=== PATIENT | female | born 1970 | race African-American/Black ===

== ENCOUNTER 2019-06-09 | Emergency (ER) | payer BC ==
--- NOTE | 2019-06-09 16:05 | ER ---
Nurse's Notes [facility] Name: Gisel Jean Baptiste Age: 48 yrs Sex: Female : 1970 Arrival Date: 06/09/2019 Time: 14:34 Bed 23 Private MD: Diagnosis: Cutaneous abscess of face Presentation: 06/09 14:55 Presenting complaint: Patient states: i have like a pimple or a boil, i cant even put tw2 my finger in there and its got my whole face swollen on the LEFT side, about 4 or 5 days, i was trying to manage it and put neosporin but it didn't help, i used to get boils on my body but i have never had one in my nose. Transition of care: patient was not received from another setting of care. Onset of symptoms was June 09, 2019. Risk Assessment: Do you want to hurt yourself or someone else? Patient reports no desire to harm self or others. Initial Sepsis Screen: Does the patient meet any 2 criteria? No. Patient's initial sepsis screen is negative. Does the patient have a suspected source of infection? No. Patient's initial sepsis screen is negative. Care prior to arrival: None. 14:55 Method Of Arrival: Ambulatory tw2 14:55 Acuity: VARUN 3 tw2 Triage Assessment: 15:01 General: Appears in no apparent distress. obese, well groomed, Behavior is calm, tw2 cooperative, appropriate for age. Pain: Complains of pain in left nostril and left cheek area. 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 - Coronavirus screen:: The patient has NOT traveled to [place] in the past 14 days. - Social history:: Smoking status: . - Ebola Screening: : Patient denies travel to an Ebola-affected area in the 21 days before illness onset. Screenin:11 Abuse screen: Denies threats or abuse. Nutritional screening: No deficits noted. vc Tuberculosis screening: No symptoms or risk factors identified. Fall Risk None identified. Assessment: 15:13 General: Appears in no apparent distress. uncomfortable, Behavior is calm, cooperative, vc appropriate for age. Pain: Complains of pain in Left nare and left side of face Pain currently is 7 out of 10 on a pain scale. Neuro: Level of Consciousness is awake, alert, obeys commands, Oriented to person, place, time, situation. Cardiovascular: Patient's skin is warm and dry. Cardiovascular: Respiratory: Respiratory effort is even, unlabored, Respiratory pattern is regular, symmetrical. GI: No deficits noted. : No signs and/or symptoms were reported regarding the genitourinary system. EENT: Reports pain in left nostril. Derm: Skin temperature is warm. Musculoskeletal: Circulation, motion, and sensation intact. Range of motion:. Vital Signs: 14:57 BP 148 / 94; Pulse 84; Resp 17; Temp 98.2(O); Pulse Ox 97% on R/A; Weight 104.33 kg tw2 (R); Height 5 ft. 3 in. (160.02 cm); Pain 8/10; 14:57 Body Mass Index 40.74 (104.33 kg, 160.02 cm) tw2 ED Course: 14:34 Patient arrived in ED. as 14:57 Triage completed. tw2 14:57 Arm band placed on. tw2 15:01 Bunny Gomez FNP-C [facility]. la1 15:01 Nicholas Merino MD is Attending Physician. la1 15:10 Felicity Larson, ROLLY is Primary Nurse. vc 15:12 Patient has correct armband on for positive identification. vc 15:14 Tessie Marx MD is Referral Physician. la1 15:15 No provider procedures requiring assistance completed. Patient did not have IV access vc during this emergency room visit. Administered Medications: No medications were administered Outcome: 15:15 Discharge ordered by . la1 15:18 Discharged to home ambulatory. vc 15:18 Condition: good 15:18 Discharge instructions given to patient, Instructed on discharge instructions, follow up and referral plans. medication usage, Demonstrated understanding of instructions, follow-up care, medications, Prescriptions given X 1. 15:19 Patient left the ED. vc Signatures: Ronel Shepherd Lee, CABLE WORKER HELPER-C CABLE WORKER HELPER-Cla1 Barbra Martinez, RN RN tw2 Felicity Larson RN RN vc
--- NOTE | 2019-06-09 16:06 | EDPHYS ---
Physician Documentation [facility] Name: Gisel Jean Baptiste Age: 48 yrs Sex: Female : 1970 Arrival Date: 06/09/2019 Time: 14:34 Bed 23 Private MD: ED Physician Nicholas Merino HPI: 06/09 15:16 This 48 yrs old Black Female presents to ER via Ambulatory with complaints of Nose Pain.la1 15:16 The patient presents with pain and swelling . Onset: The symptoms/episode la1 began/occurred 4 day(s) ago. Modifying factors: The symptoms are alleviated by nothing. the symptoms are aggravated by nothing. Associated signs and symptoms: Pertinent negatives: fever, eye pain. Severity of symptoms: At their worst the symptoms were mild. The patient has not experienced similar symptoms in the past. pt reports that she has had pain and mild swelling to the left lateral nose. No overlying cellulitis, no involvement of the eyes or sinus pain/tenderness. 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 - Coronavirus screen:: The patient has NOT traveled to [place] in the past 14 days. - Social history:: Smoking status: . - Ebola Screening: : Patient denies travel to an Ebola-affected area in the 21 days before illness onset. ROS: 15:17 Constitutional: Negative for fever, chills, and weight loss, Eyes: Negative for injury, la1 pain, redness, and discharge, Neck: Negative for injury, pain, and swelling, Cardiovascular: Negative for chest pain, palpitations, and edema, Respiratory: Negative for shortness of breath, cough, wheezing, and pleuritic chest pain, Abdomen/GI: Negative for abdominal pain, nausea, vomiting, diarrhea, and constipation, Back: Negative for injury and pain, : Negative for injury, bleeding, discharge, and swelling, MS/Extremity: Negative for injury and deformity, Neuro: Negative for headache, weakness, numbness, tingling, and seizure, Endocrine: Negative for neck swelling, polydipsia, polyuria, polyphagia, and marked weight changes. 15:18 ENT: Positive for pain and swelling to left lateral nose. la1 Exam: 15:18 Constitutional: This is a well developed, well nourished patient who is awake, alert, la1 and in no acute distress. Head/Face: Normocephalic, atraumatic. Eyes: Pupils equal round and reactive to light, extra-ocular motions intact. Lids and lashes normal. Conjunctiva and sclera are non-icteric and not injected. Cornea within normal limits. Periorbital areas with no swelling, redness, or edema. Neck: Trachea midline, no thyromegaly or masses palpated, and no cervical lymphadenopathy. Supple, full range of motion without nuchal rigidity, or vertebral point tenderness. No Meningismus. Chest/axilla: Normal chest wall appearance and motion. Nontender with no deformity. No lesions are appreciated. Cardiovascular: Regular rate and rhythm with a normal S1 and S2. No gallops, murmurs, or rubs. Normal PMI, no JVD. No pulse deficits. Respiratory: Lungs have equal breath sounds bilaterally, clear to auscultation MS/ Extremity: Pulses equal, no cyanosis. Neurovascular intact. Full, normal range of motion. 15:18 ENT: Nose: External nose: swelling is noted, left side of nose, Nasal septum: is midline, no septal hematoma appreciated, Nasal mucosa: normal, mild swelling to nasal septum to the left lateral side. left nare patent , Mouth: is normal, Posterior pharynx: is normal. Vital Signs: 14:57 BP 148 / 94; Pulse 84; Resp 17; Temp 98.2(O); Pulse Ox 97% on R/A; Weight 104.33 kg tw2 (R); Height 5 ft. 3 in. (160.02 cm); Pain 8/10; 14:57 Body Mass Index 40.74 (104.33 kg, 160.02 cm) tw2 MDM: 15:01 Patient medically screened. la1 15:12 Differential diagnosis: sinusitis, abscess. Data reviewed: vital signs, nurses notes, I la1 have discussed the patient's presentation/case with the attending Emergency Department Physician; and as a result, I will discharge patient. Data interpreted: Pulse oximetry: on room air Arterial blood gas: is normal. Counseling: I had a detailed discussion with the patient and/or guardian regarding: the historical points, exam findings, and any diagnostic results supporting the discharge/admit diagnosis, the need for outpatient follow up, an ENT specialist, to return to the emergency department if symptoms worsen or persist or if there are any questions or concerns that arise at home. Special discussion: Based on the history and exam findings, there is no indication for further emergent testing or inpatient evaluation. I discussed with the patient/guardian the need to see the ENT specialist for further evaluation of the symptoms. ED course: Strict return precautions given. Administered Medications: No medications were administered Disposition: 15:50 I agree with the assessment and plan of care. kdr Disposition: 06/09/19 15:15 Discharged to Home. Impression: Cutaneous abscess of face. - Condition is Stable. - Discharge Instructions: Skin Abscess. - Prescriptions for Doxycycline Hyclate 100 mg Oral Tablet - take 1 tablet by ORAL route every 12 hours; 20 tablet. - Medication Reconciliation Form, Thank You Letter, Antibiotic Education form. - Follow up: Tessie Marx MD; When: 2 - 3 days. Follow up: Emergency Department; When: As needed; Reason: Fever > 102 F, Worsening of condition. - Problem is new. - Symptoms are unchanged. Signatures: Nicholas Merino MD MD kdr Bunny Gomez FNP-C FLOOR ATTENDANT-Cla1 Barbra Martinez RN RN tw2 Felicity Larson RN RN vc Corrections: (The following items were deleted from the chart) 15:19 15:15 06/09/2019 15:15 Discharged to Home. Impression: Cutaneous abscess of face. vc Condition is Stable. Forms are Medication Reconciliation Form, Thank You Letter, Antibiotic Education, Prescription Opioid Use. Follow up: Tessie Marx; When: 2 - 3 days. Follow up: Emergency Department; When: As needed; Reason: Fever > 102 F, Worsening of condition. Problem is new. Symptoms are unchanged. la1
== END 2019-06-09 15:19 | disposition home or self-care (01) ==
CPT/HCPCS: 99282